=== PATIENT | female | born 2000 | race Caucasian/White ===

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

== ENCOUNTER 2022-12-13 13:04 | Emergency (ER) | payer BC ==
[~2022-12-13] VITALS: Ht 160 cm; Wt 59.1 kg
[~2022-12-13 13:04] MED LIST changes: +CEPHALEXIN500 M1 PO; +PERCOCET 325 MG1 TA2 PO; +PROVERA5 MG
[2022-12-13 13:14] VITALS: BP 93/60; TEMP 98.2
[2022-12-13 14:07] VITALS: PULSE 81
== END 2022-12-13 14:08 | disposition home or self-care (01) ==
LOC: COL.ER 13:04
DX: S99.921A Unspecified injury of right foot, initial encounter (principal); Z28.310 Unvaccinated for COVID-19; X50.1XXA Overexertion from prolonged static or awkward postures, initial encounter

== ENCOUNTER 2023-03-25 22:39 | Emergency (ER) | payer BC ==
[~2023-03-25] VITALS: Ht 160 cm; Wt 59.1 kg
[2023-03-26 00:19] VITALS: BP 114/79; PULSE 78; TEMP 98.1
== END 2023-03-26 00:19 | disposition home or self-care (01) ==
LOC: COL.ER 22:39
DX: S93.491A Sprain of other ligament of right ankle, initial encounter (principal); Z28.310 Unvaccinated for COVID-19; X50.1XXA Overexertion from prolonged static or awkward postures, initial encounter